=== PATIENT | female | born 1965 | race Caucasian/White ===

== ENCOUNTER 2023-01-23 10:51 | Outpatient (CLI) | payer OTHER, SELFPAY | END 2023-01-23 10:52 | disposition home or self-care (01) | LOC: CHSLAB 10:57 | PROVIDERS: PCP Family Medicine; Visit Provider Nurse Practitioner Family | DX: G89.4 Chronic pain syndrome (principal); M54.12 Radiculopathy, cervical region | CPT/HCPCS: 36415; 80307; 80321; 80349; 80361; G0480 ==